=== PATIENT | female | born 1990 | race Caucasian/White ===

== ENCOUNTER 2018-01-11 14:29 | Emergency (ER) | payer OTHER, MEDICAID ==
[~2018-01-11] VITALS: Ht 157.5 cm; Wt 65.8 kg
[~2018-01-11 14:29] MED LIST: EYE DROPS; INDERAL40 MG PO; METHIMAZOLE10 MG PO; MOTION RELIEF25 MG PO; PROPRANOLOL 1010 MG PO; VICODIN 5-3001 EACH PO; [UNRECOGNIZED DRUG - OTHER]
[2018-01-11] MEDS ORDERED: ATENOLOL 25 MG25 M1 PO (14:33)
[2018-01-11 15:09] LABS: ABSOLUTE LYMPHOCYTES 1.7 thou/uL (0.8-5.3); ABSOLUTE MONOCYTES 0.7 thou/uL (0.0-1.2); BASOPHILS 0.4 %; EOSINOPHILS 0.2 %; HEMATOCRIT 38.7 % (37.0-47.0); HEMOGLOBIN 13.2 gm/dL (12.0-15.0); LYMPHOCYTES 26.6 %; MCH 27.1 pg (26.0-34.0); MCHC 34.2 g/dL (28.0-37.0); MCV 79.3 fL (80.0-100.0); MONOCYTES 10.9 %; MPV 8.7 fl. (7.2-11.1); NUCLEATED RBCS 0 /100WBC; PLATELET COUNT* 167 thou/uL (150-400); POLYS 61.9 %; RBC 4.89 mil/uL (4.20-5.00); RDW-CV 19.7 % (10.5-14.5); WBC 6.5 thou/uL (4.0-11.0)
[2018-01-11 15:19] LABS: CALCIUM 8.9 mg/dL (8.5-10.1); CREATININE 0.6 mg/dL (0.6-1.3); POTASSIUM 3.2 mmol/L (3.5-5.1)
[2018-01-11 15:23] LABS: ALBUMIN 3.9 g/dL (3.4-5.0); TOTAL BILIRUBIN 0.4 mg/dL (<0.1-1.0); TOTAL PROTEIN 7.1 g/dL (6.4-8.2)
[2018-01-11 16:41] LABS: URINE BLOOD NEGATIVE (Negative); URINE CLARITY SL CLOUDY; URINE COLOR YELLOW; URINE GLUCOSE-RANDOM NEGATIVE (Negative); URINE LEUKOCYTES-REFLEX TRACE (Negative); URINE NITRITE-REFLEX NEGATIVE (Negative); URINE PROTEIN 2+ (Negative); URINE SPECIFIC GRAVITY 1.025 (1.005-1.030)
[2018-01-11 16:47] LABS: ACETEST (KETONE CONFIRMATORY) Moderate (Negative); ICTOTEST (BILI CONFIRMATORY) Negative (Negative); URINE BILIRUBIN 2+ (Negative); URINE KETONES 3+ (Negative)
[2018-01-11 16:50] LABS: SQUAMOUS 4-10 Moderate /LPF (0-3); URINE RBC None Seen /HPF (0-2); URINE WBC-REFLEX 6-15 Few /HPF (0-5)
[2018-01-11 16:51] LABS: BACTERIA-REFLEX 1-9 Few /HPF (None Seen); MUCUS 4-6 Moderate strn/LPF (None Seen)
[2018-01-11 17:27] LABS: AMP/METHAMP Negative (Negative); BARBITURATES Negative (Negative); BENZODIAZEPINES Negative (Negative); COCAINE POSITIVE (Negative); METHADONE Negative (Negative); OPIATES Negative (Negative); PCP POSITIVE (Negative); THC POSITIVE (Negative)
[2018-01-11 18:20] VITALS: BP 124/70
--- NOTE | 2018-01-12 10:21 | EKG ---
[place] [address] ELECTROCARDIOGRAM REPORT Name: ROBERT SCHWARTZ Room: [facility]#: [id number] Admission: 01/11/18 Attend Phys: Discharge: 01/11/18 Date of : 86 Report #: [id number] THIS REPORT FOR: //name// [facility] ED Test Date: 2018-01-11 Test Time: 14:33:36 Pat Name: ROBERT SCHWARTZ Department: Room: Gender: F Hvac Designer: Robbie SEAMAN : 1990 Requested By: Ashley Sofia Order Number: [id number] MD: Dioni Olson Measurements Intervals [place] Rate: 108 P: -44 MI: 130 QRS: 48 QRSD: 83 T: -28 QT: 333 QTc: 447 Interpretive Statements Sinus tachycardia Abnormal T, consider ischemia, diffuse leads No previous ECG available for comparison Electronically Signed On 01-12-2018 10:21:08 [employer] by Dioni Olson [email or web address] <ELECTRONICALLY SIGNED> By: Dioni Olson MD, [facility] 01/12/18 1021 1433 1433 Dioni Olson MD, FACC /EPI
== END 2018-01-11 18:20 | disposition short-term general hospital (02) ==
LOC: M.ERS 14:29
PROVIDERS: Physician Assistant
DX: I16.0 Hypertensive urgency (principal); R07.89 Other chest pain; R19.7 Diarrhea, unspecified; R11.2 Nausea with vomiting, unspecified; F17.210 Nicotine dependence, cigarettes, uncomplicated; E03.9 Hypothyroidism, unspecified; Z86.39 Personal history of other endocrine, nutritional and metabolic disease; Z98.890 Other specified postprocedural states; Z88.5 Allergy status to narcotic agent; Z79.899 Other long term (current) drug therapy